=== PATIENT | female | born 1960 | race Caucasian/White ===

== ENCOUNTER 2017-06-16 14:17 | Emergency (ER) | payer BC ==
[2017-06-16] MEDS ORDERED: Promethazine HCl 25 MG/ML VIAL ONE (15:00)
[2017-06-16] MEDS ORDERED: Dexamethasone 4 mg/ml Vial ONE (15:43)
[2017-06-16] MEDS ORDERED: Morphine 2 MG/ML SYRINGE ONE (15:43)
--- OUTSIDE RECORDS SUMMARY | 2017-06-19 12:46 | XMS | Continuity of Care Document ---
:1960 Author Organization [facility] Care Team Providers Name Role Phone Salina Núñez Primary Care Physician Unavailable Insurance Providers Payer Name Policy Number Subscriber Name Relationship [facility] [id number] MANJUCHRISTIN COLON Advance Directives Directive Response Recorded Date/Time Advance Directive? N 09/25/16 11:45pm Living Will? N 09/25/16 11:45pm Health Care Proxy? N 09/25/16 11:45pm Healthcare Power of Equine Breeder? N 09/25/16 11:45pm Is the patient an Organ Donor? Y 09/25/16 11:45pm Chief Complaint and Reason for Visit Reason for Visit VOMITING,DIZZINESS Problems Active Medical Problems Problem Onset Date Recorded Date Status Vertigo Unknown 09/26/16 Active Medications Current Home Medications Medication Dose Units Route Directions Days/Qty Instructions Start Date DIAZEPAM (DIAZEPAM 2 MG PO THREE TIMES 30 09/26/16 2 MG TAB) 2 MG TAB DAILY NEEDED PROMETHAZINE HCL 12.5 MG PO EVERY EIGHT 20 09/26/16 (PROMETHAZINE 12.5 HOURS NEEDED MG TAB) 12.5 MG TAB PRN N/V Social History Problem Response Recorded Date Alcohol? Y 09/26/16 Query Response Start Date Stop Date Smoking Status: Never Smoker Hospital Discharge Instructions No hospital discharge instructions. Plan of Care Discharge Date 09/26/16 Disposition HOME/SELF CARE Condition at Discharge STABLE Instructions/Education Provided Vertigo (Alternative Therapy) DI for Vertigo Forms Provided Discharge Form Prescriptions See Medications Section Referrals Salina Núñez MD - Functional Status No functional status results. Allergies, Adverse Reactions, Alerts No known allergies. Immunizations No Known History of Immunizations. Vital Signs Vital Reading Collection Date/Time Result Blood Pressure 09/26/16 2:50am 123/62 Patient Temperature 09/26/16 2:50am 98.7 Pulse Rate 09/26/16 2:50am 67 Bedside Pulse Oximetry 09/26/16 2:50am 99 Height 09/25/16 11:28pm 165.10 cm Height 09/25/16 11:28pm 5 ft 5.00 in Weight 09/25/16 11:28pm 47.627 kg Weight 09/25/16 11:28pm 105 lb 0.00 oz Body Mass Index 09/25/16 11:28pm 17.5 Results No known relevant diagnostic tests, laboratory data and/or discharge summary. Procedures No Known History of Procedures. Encounters Encounter Location Arrival/Admit Date Discharge/Depart Date Attending Provider Departed [place] 09/25/16 11:26pm 09/26/16 2:15am Scottie Hansen [facility] Encounter Diagnosis Vertigo
--- OUTSIDE RECORDS SUMMARY | 2017-06-19 12:46 | XMS | Clinical Summary ---
:1960 Author Organization [facility] Address [address] [place] [address] Phone Care Team Providers Name Role Phone , Primary Care Provider Unavailable Allergies Not on File Current Medications Not on file Active Problems Not on file Social History Tobacco Use Types Packs/Day Years Used Date Never Assessed Sex Assigned at Date Recorded Not on file Last Filed Vital Signs Not on file Plan of Treatment Not on file Results Not on filefrom Last 3 Months
--- OUTSIDE RECORDS SUMMARY | 2017-06-19 12:46 | XMS | Clinical Summary ---
:1960 Author Organization [facility] Address [address] [place] [address] Phone Care Team Providers Name Role Phone , Primary Care Provider Unavailable Allergies No Known Allergies Current Medications Prescription Sig. Disp. Refills Start Date End Date Status topiramate (TOPAMAX) 25 Take 25 mg by mouth Active MG tablet 2 (two) times daily. ondansetron (ZOFRAN) 4 MG Take 4 mg by mouth Active tablet 2 (two) times daily as needed for Nausea. dicyclomine (BENTYL) 20 Take 20 mg by mouth Active mg tablet every 6 (six) hours. Active Problems No known active problems Family History Relation Name Status Comments Father Mother Alive Social History Tobacco Use Types Packs/Day Years Used Date Never Smoker Alcohol Use Drinks/Week oz/Week Comments Yes OCCASIONALLY Sex Assigned at Date Recorded Not on file Last Filed Vital Signs Vital Sign Reading Time Taken Blood Pressure 128/67 10/25/2016 12:49 PM [employer] Pulse 84 10/25/2016 12:49 PM [employer] Temperature 37.1 C (98.8 F) 10/25/2016 12:49 PM [employer] Respiratory Rate 18 10/25/2016 12:49 PM [employer] Oxygen Saturation 99% 10/25/2016 12:49 PM [employer] Inhaled Oxygen Concentration - - Weight 47.6 kg (105 lb) 10/25/2016 12:49 PM [employer] Height 160 cm (5' 2.99") 10/25/2016 12:49 PM [employer] Body Mass Index 18.6 10/25/2016 12:49 PM [employer] Plan of Treatment Not on file Results Not on filefrom Last 3 Months
== END 2017-06-16 17:41 | disposition home or self-care (01) ==
LOC: ERS 14:17
DX: M51.36 Other intervertebral disc degeneration, lumbar region (principal); K21.9 Gastro-esophageal reflux disease without esophagitis
CPT/HCPCS: 96365; 96375; J1100; J2270; J2550

== ENCOUNTER 2017-07-12 13:05 | Outpatient (CLI) | payer BC ==
--- NOTE | 2017-07-12 13:36 | CT ---
CT LUMBAR SPINE NONCONTRAST: INDICATION: Lumbar radiculopathy. FINDINGS: There is no evidence of compression deformity. There is a slight retrolisthesis of the L5-S1 level. There is lumbarization of the S1 vertebra with a rudimentary S1-2 disk space. Gas-vacuum phenomenon at L5-S1 present. L5-S1: There is no significant osseous compromise of the central canal. There is mild bilateral arnie ral foraminal narrowing on the basis of disk-osteophyte complex. L4-5: There is a concentric disk bulge with mild narrowing of the central canal. Associated osteoph yte ridge is present. No high-grade osseous compromise of the neural foramina. L3-4: No significant compromise of central canal or neural foramina. L2-3: No significant compromise of the central canal or neural foramina. L1-2: No significant compromise of the central canal or neural foramina. IMPRESSION: Mild degenerative change of the lumbar spine. POS: AKOSUA
== END 2017-07-12 13:06 | disposition home or self-care (01) ==
LOC: TBSIIMAG 13:05
PROVIDERS: ATTEND Neurological Surgery
DX: M47.26 Other spondylosis with radiculopathy, lumbar region (principal)
CPT/HCPCS: 72131

== ENCOUNTER 2017-08-12 07:08 | Day surgery (SDC) | payer BC ==
[2017-08-09 11:19] VITALS: BMI 19.5
--- NOTE | 2017-08-11 23:56 | HP ---
HISTORY OF PRESENT ILLNESS: Ms. Loco is a 57-year-old woman who presents for evaluation of 5-6 weeks course of developing right-sided lower back pain radiating into the buttocks and upper posterior thi gh. She also states at times, she gets groin pain as well on the right. She denies all symptoms on the left and denies weakness or numbness. She has had similar problems, although much less intense i n the last 2 years that resolved with conservative management. At this time, she has already had 3 e pidural steroid injections and they are yet to make any considerable difference. MRI from the [facility] reveals an L5 annular tear with small disk protrusions, likely impacting S1 as it descend s on the right. There is also what appears to be some retained injection material at L4-L5 on the ri ght on CT scan that was performed after that did confirm that this is indeed an injection material th at has resolved and she does have a right-sided L4 disk protrusion that looks to be causing narrowing around the nerve at that level. PAST MEDICAL HISTORY: Significant for gastroesophageal reflux. CURRENT MEDICATIONS: Topamax. ALLERGIES: No known drug allergies. PAST SURGICAL HISTORY: Cholecystectomy. PHYSICAL EXAMINATION: Patient is alert and oriented x3. Gait is mildly antalgic. Lower extremity m otor exam is normal. She does have a positive straight leg raise bilaterally. ASSESSMENT: Lumbar radiculopathy. PLAN: Dr. Leon met with the patient, reviewed imaging and advocated for right L4 diskectomy. He ex plained to the patient the risks, benefits and alternatives of the procedure. The patient expressed understanding and would like to move forward with surgery as discussed. I do believe the patient is mentally competent and capable of making medical decisions for herself. We will move forward with jolene cancino as planned. This is Win Friedman PA-C, dictating for Dr. Leon.
[2017-08-12] MEDS ORDERED: CEFAZOLIN/Water 2 GM/20 ML SYRINGE ONE ×2 (07:35→12:38)
[2017-08-12] MEDS ORDERED: Scopolamine 1.5 mg/72 hour Patch ONE (07:53)
[2017-08-12] MEDS ORDERED: Midazolam HCl 2 mg/2 ml Vial ONE ×2 (07:53→09:37)
[2017-08-12] MEDS ORDERED: Bupivacaine/Epinephrine 0.25% 30 ML VIAL ONE (09:03)
[2017-08-12] MEDS ORDERED: Fentanyl 100 MCG/2 ML VIAL ONE ×2 (09:37→11:21)
--- NOTE | 2017-08-12 09:41 | PRG ---
DATE OF SERVICE: 08/12/2017 Ms. Loco is a 57-year-old female known to us for clinic evaluation for lumbar radiculopathy. I met w ti her this morning to discuss her imaging, diagnosis and planned surgical procedure. Over the cour se of her nonsurgical management, she is contented with right-sided leg pain that has improved with h er injections, but nonetheless persist predominantly within the hip area and proximal right leg. She had an MRI scan performed of the [facility] which shows L4 disk osteophyte complex off to th e right with crowding of the lateral recess also in part due to facet hypertrophy. Of note, she does have a transitional segment and so that were taken that into account on counting levels. I discusse d with her again today, risks, benefits, and alternatives to the hemilaminectomy and diskectomy proce sukhjinder. I answered all of her questions as well as those of her . I believe they understood th e procedure and they provided informed consent.
[2017-08-12] MEDS ORDERED: Glycopyrrolate 0.2 MG/ML 5 ML SYRINGE ONE (10:25)
[2017-08-12] MEDS ORDERED: Ondansetron HCl/PF 4 MG/2 ML Vial ONE (10:25)
[2017-08-12] MEDS ORDERED: Propofol 200 MG/20 ML VIAL ONE (10:25)
[2017-08-12] MEDS ORDERED: Lidocaine 1% PF 5 ML VIAL ONE (10:25)
[2017-08-12] MEDS ORDERED: diphenhydrAMINE 50 MG/ML VIAL ONE (10:25)
[2017-08-12] MEDS ORDERED: Metoclopramide HCl 10 MG/2 ML VIAL ONE (10:25)
[2017-08-12] MEDS ORDERED: Ketorolac Tromethamine 30 MG/ML VIAL ONE (10:25)
[2017-08-12] MEDS ORDERED: Dexamethasone 20 MG/5 ML VIAL ONE (10:25)
--- NOTE | 2017-08-12 11:01 | OP ---
DATE OF PROCEDURE: 08/12/2017 SURGEON: Marito Leon M.D. INSIDE OUTSIDE SALES REPRESENTATIVE: Demetrio Friedman PA-C. INDICATION: Pain. DIAGNOSIS: Lumbar radiculopathy. PROCEDURE: Right L4-L5 hemilaminectomy, medial facetectomy, decompression. ANESTHESIA: General. TECHNIQUE: The patient was brought into the operating room and placed under general anesthesia. She was flipped from a supine to a prone position on the operating room table. A linear incision was pl anned over the L4-5 segment. Of note, she does have a sacralized lumbar segment and transitional seg ment, therefore this counting from below would be L3-L4, but from above is L4-5. After prepping and draping and after an appropriate operative pause, the incision was created. The soft tissues were sw ept away from midline on the right. A self-retaining retractor was placed in the wound for optimal e xposure. An x-ray image was obtained in the lateral planes to confirm the appropriate level. High-s peed cutting drill bit as well as 2, 3 and 4 mm Kerrisons were used to perform a hemilaminectomy aliyah g the inferior aspect of L4 and the superior aspect of L5. The medial third of the facet joint was a lso removed. The pedicle of L4 could be palpated as could the pedicle at L5. The exiting and descen ding L4 and L5 nerve roots respectively were identified. I palpated the L4 disc which was not signif icantly protuberant and therefore I decided not to enter the disk space. A hemilaminectomy, medial f acetectomy alone were enough to adequately decompressed the lateral recess. The wound was irrigated. Hemostasis was maintained throughout. The wound was then closed in anatomic layers and a pressure dressing was applied. There were no known procedure complications.
[2017-08-12] MEDS ORDERED: HYDROcodone/Acetaminophen 5/325 mg Tablet ONE (12:07)
--- NOTE | 2017-08-12 14:28 | RAD ---
SINGLE LATERAL INTRAOPERATIVE RADIOGRAPH OF THE LUMBAR SPINE: DATE: 08/12/17. HISTORY: Imaging performed during laminectomy. FINDINGS: A single crosstable lateral radiograph of the lumbar spine is provided. This exam demonstrates posto perative hardware projecting off over the soft tissues posteriorly, posterior to the L4 vertebral bod y assuming 5 lumbar-type vertebral bodies. IMPRESSION: Single intraoperative radiograph as above. POS: AKOSUA
== END 2017-08-12 12:58 | disposition home or self-care (01) ==
LOC: SDC 07:08
PROVIDERS: ATTEND Neurological Surgery
PROC: 01NB0ZZ Release Lumbar Nerve, Open Approach (ICD-10-PCS; principal; 2017-08-12)
DX: M54.16 Radiculopathy, lumbar region (principal); K21.9 Gastro-esophageal reflux disease without esophagitis; Z79.899 Other long term (current) drug therapy; Z90.49 Acquired absence of other specified parts of digestive tract
CPT/HCPCS: 72020; 96374; J0131; J1100; J1200; J1885; J2001; J2250; J2405; J2704; J2765; J3010